=== PATIENT | female | born 1945 | race Caucasian/White ===

== ENCOUNTER 2019-09-06 12:11 | Inpatient (IN) | payer MEDICARE ==
[2019-09-06] MEDS ORDERED: Morphine 4 MG/ML VIAL ONE (12:55)
[2019-09-06] MEDS ORDERED: Magnesium 2 GM/50 ML BAG (IN WATER) ONE (12:55)
[2019-09-06] MEDS ORDERED: Ondansetron PF 4 MG/2 ML Vial ONE (12:55)
[2019-09-06] MEDS ORDERED: Potassium Chloride 40 MEQ in Sodium Chloride 0.9% 250 ML 250 ML IVPB SCH (13:15)
[2019-09-06] MEDS ORDERED: Acetaminophen 325 MG TAB PO PRN ×2 (14:19→16:53)
[2019-09-06] MEDS ORDERED: Ondansetron PF 4 MG/2 ML Vial IVP PRN (14:19)
[2019-09-06] MEDS ORDERED: Ondansetron ODT 4 MG TAB SL PRN (14:19)
[2019-09-06] MEDS ORDERED: Morphine 4 MG/ML VIAL SLOW IVP PRN (14:20)
[2019-09-06 14:30] VITALS: BMI 28.5
[2019-09-06] MEDS: Lactated Ringer's 1,000 ML IV SCH (14:52)
[2019-09-06] MEDS ORDERED: Acetaminophen 650 MG Suppository PR PRN (16:53)
[2019-09-06] MEDS ORDERED: Sodium Chloride 0.9% 1,000 ML IV SCH (17:00)
[2019-09-06 17:26] LABS: Hemoglobin 15.5 g/dL (12.0-16.0)
--- NOTE | 2019-09-06 17:32 | PDOC.HHP ---
Hospitalist HPI - History of Present Illness abdo pain and diarrhea History of Present Illness: Ms. Phillip states she developed diarrhea yesterday, had approximately 3-4 watery stools. She denies any nausea or vomiting. Has not had any fevers but reports having sweats and chills. States today she began to feel weak and then began noting bright red blood mixed with her stools and at times she has passed dark blood/clots. No further bloody stools since arriving to the floor. Denies any hematemesis. She states she feels generally better overall since she has been given fluids. No history of bowel disease. Denies being on any anticoagulation. No recent travels and no one has been ill at home. Denies being on any abx recently. ED Course: ED has given Morphine for pain and she was given IVF. Labs were done showing a WCC of 22 however lactic acid was normal. She had a critically low potassium of 2.8. Potassium replaced as well as magnesium. She had CT imaging done which was concerning for colitis. Antibiotics were given (Rocephin and Flagyl). Hospitalist ROS - Review of Systems Constitutional: reports: chills, sweats, malaise Eyes: denies: pain, vision change, conjunctivae inflammation, eyelid inflammation, redness, other ENT: denies: ear pain, ear discharge, nose pain, nose discharge, nose congestion , mouth pain, mouth swelling, throat pain, throat swelling, other Cardiovascular: denies: chest pain, palpitations, orthopnea, paroxysmal noc. dyspnea, edema, light headedness, other Gastrointestinal: reports: nausea, abdominal pain, diarrhea, hematochezia. denies: vomiting, constipation, melena, other Genitourinary: denies: dysuria, frequency, incontinence, hematuria, retention, other Musculoskeletal: denies: neck pain, shoulder pain, arm pain, back pain, hand pain, leg pain, foot pain, other Skin: denies: rash, lesions, ethan, bruising, other Neurological: denies: weakness, numbness, incoordination, change in speech, confusion, seizures, other - Medication Medications: Active Medications Generic Name Dose Route Start Last Admin Trade Name Freq PRN Reason Stop Dose Admin Lactated Ringer's 1,000 mls @ 100 mls/hr 09/06/19 14:30 09/06/19 14:52 Lactated Ringer's IV 09/07/19 01:00 1,000 mls .Q10H NIECY Administration Hospitalist History - Past Medical History Source: patient Cardiac: reports: HTN, Hyperlipidemia Psych: reports: Anxiety, Depression - Past Surgical History Past Surgical History: reports: Tonsillectomy - Social History Smoking Status: Smokes 0-10 cigs daily Alcohol: reports: None Drugs: reports: none Living Situation: Alone Activity level: independent ambulation - Exam General Appearance: NAD Eye: PERRL, anicteric sclera ENT: normocephalic atraumatic, no oropharyngeal lesions, moist mucosa Neck: supple, no lymphadenopathy Heart: RRR, no murmur, no gallops, no rubs Respiratory: CTAB, no wheezes, no rales, no ronchi, normal chest expansion, no tachypnea Gastrointestinal: soft, non-distended, normal bowel sounds, no guarding, no rigidity, tender to palpation (minimal diffuse "soreness" to palpation) Extremities: no cyanosis, no clubbing, no edema Skin: normal turgor, no lesions, no rashes Neurological: cranial nerve grossly intact Musculoskeletal: normal tone, normal strength Psychiatric: normal affect, normal behavior, A&O x 3 Hospitalist Results - Labs Result Diagrams: 09/06/19 17:20 Hospitalist H&P A/P - Problem (1) Colitis Code(s): K52.9 - NONINFECTIVE GASTROENTERITIS AND COLITIS, UNSPECIFIED Status : Acute (2) Abdominal pain Code(s): R10.9 - UNSPECIFIED ABDOMINAL PAIN Status: Acute (3) Hypokalemia Code(s): E87.6 - HYPOKALEMIA Status: Acute (4) Bloody stool Code(s): K92.1 - MELENA Status: Acute (5) Hypertension Code(s): I10 - ESSENTIAL (PRIMARY) HYPERTENSION Status: Chronic - Plan Plan: Continue IV Abx and IV fluids. Clear liquid diet. Stool cultures including C. Diff. Stat H/H to ensure no significant drop. Transfuse if needed. Currently no further GI bleeding since arrival. Monitor BP. EKG (baseline). Recheck electrolytes following potassium infusion. Replace further if needed. No chemical DVT prophylaxis. Mechanical SCDs. CODE STATUS: FULL Surrogate decision maker is her Alf Phillip. Discussed with Dr. Mckeon who agrees with plan as above.
[2019-09-06] MEDS: HYDROcodone/Acetaminophen 5/325 mg Tablet PO PRN (17:37)
[2019-09-06] MEDS ORDERED: Morphine 2 MG/ML SYRINGE SLOW IVP PRN (18:13)
--- NOTE | 2019-09-06 18:56 | HP ---
HISTORY OF PRESENT ILLNESS: The patient is from [place], goes to a physician in [place], Dr. Quach. She was referred to [facility] from [facility]. She presents with 24 hours of cramping abdominal pain, some nausea, diarrhea, and eventually bloody diarrhea. PAST MEDICAL HISTORY: Pertinent for hypertension, elevated cholesterol. MEDICATIONS: She has currently been on; 1. Zocor 20 mg a day. 2. Metoprolol 100 mg a day. 3. Fluoxetine 40 mg a day. 4. Gabapentin 100 mg three times a day. 5. Imdur 30 mg a day. 6. Aspirin 81 mg a day. ALLERGIES: TO LISINOPRIL. SOCIAL HISTORY: She smokes. REVIEW OF SYSTEMS: No chest pain, orthopnea, or paroxysmal nocturnal dyspnea. No cough, wheezing, or asthma. No hematuria, dysuria, or nocturia. No pain or swelling in her legs. PHYSICAL EXAMINATION: GENERAL: She is alert and oriented. VITAL SIGNS: Blood pressure 173/79, pulse 79, respirations 16, temperature 98.4. HEENT: Pupils are equal and round. Oral mucous membranes dry. CHEST: Clear to auscultation and percussion. HEART: Regular rate and rhythm. First and second heart sounds clear. ABDOMEN: Soft. Bowel sounds are normal. There is no hepatosplenomegaly. No mass. No rebound. EXTREMITIES: No cyanosis, clubbing, or edema. LABORATORY: Done at the outside facility reveals a white count of 22,000, hemoglobin 15.5, platelet count of 243,000. Potassium was 2.8, sodium 145, CO2 of 22, BUN and creatinine are normal. Liver function tests normal. Abdomen and pelvis, final report pending. ADMITTING DIAGNOSES: Abdominal pain, bloody diarrhea, leukocytosis, hypertension, dyslipidemia, hypokalemia. PLAN: 1. IV fluids. 2. IV antibiotics with Rocephin and Flagyl. 3. Resume home medicines. 4. Probable GI consult. I have discussed this case with EDWARD Gomez. Agree with her management. Job ID: [id number]
[2019-09-06] MEDS: Simvastatin 20 MG TAB PO SCH (19:50)
[2019-09-06] MEDS: Gabapentin 100 MG CAP PO SCH (19:50)
[2019-09-06] MEDS ORDERED: Ciprofloxacin 500 MG TAB PO SCH (20:00)
[2019-09-06 20:39] LABS: Anion Gap 15 mmol/L (10-20); Carbon Dioxide 16 mmol/L (23-31); Chloride 112 mmol/L (98-107); Potassium 4.1 mmol/L (3.5-5.1); Sodium 139 mmol/L (136-145)
[2019-09-06] MEDS ORDERED: metroNIDAZOLE 500 MG TAB PO SCH (21:00)
[2019-09-06] MEDS: metroNIDAZOLE 500 MG in Premix Bag 1 BAG IVPB SCH (22:24)
[2019-09-07] MEDS: metroNIDAZOLE 500 MG in Premix Bag 1 BAG IVPB SCH ×3 (04:42→21:42)
[2019-09-07] MEDS: HYDROcodone/Acetaminophen 5/325 mg Tablet PO PRN ×2 (04:42→18:52)
[2019-09-07] MEDS: Lactated Ringer's 1,000 ML IV SCH (04:43)
[2019-09-07 04:44] LABS: Band 5 % (5-11); Hemoglobin 14.4 g/dL (12.0-16.0); Lymphocytes 8 % (21-51); MDiff Complete? YES; Mean Corpuscular HGB CONC 33.1 g/dL (32.0-36.0); Mean Corpuscular Hemoglobin 29.2 pg (27.0-31.0); Mean Corpuscular Volume 88.3 fL (78.0-98.0); Mean Platelet Volume 9.3 fL (7.4-10.4); Monocytes 10 % (0-10); Neutrophil 77 % (42-75); Platelet Count 325 thou/uL (130-400); Platelet Morphology Comment Appears Adequate; RBC Distribution Width 15.2 % (11.5-14.5); Red Blood Cell (RBC) Count 4.92 mill/uL (4.20-5.40); White Blood Cell (WBC) Count 22.8 thou/uL (4.8-10.8)
[2019-09-07 04:54] LABS: Anion Gap 11 mmol/L (10-20); BUN (Urea Nitrogen) 12 mg/dL (9.8-20.1); Calc. Creatinine Clearance 77 mL/min (70-130); Calcium 8.5 mg/dL (7.8-10.44); Carbon Dioxide 23 mmol/L (23-31); Chloride 111 mmol/L (98-107); Estimated GFR-MDRD 76; Glucose 99 mg/dL (83-110); Potassium 3.6 mmol/L (3.5-5.1); Sodium 141 mmol/L (136-145)
--- NOTE | 2019-09-07 07:41 | PDOC.HOSPP ---
- Subjective Encounter Date: 09/07/19 Encounter Time: 07:40 Subjective: left sided abd pain persists, no further rectal bleeding - Objective Vital Signs & Weight: Vital Signs (12 hours) Temp Pulse Resp BP Pulse Ox 09/07/19 03:50 99.2 F 77 16 165/75 H 94 L 09/06/19 23:30 98.3 F 76 16 146/67 H 95 09/06/19 19:45 98.2 F 77 19 155/69 H 93 L Weight Weight 155 lb 13.869 oz I&O: 09/06/19 09/07/19 09/08/19 06:59 06:59 06:59 Intake Total 1645 Balance 1645 Result Diagrams: 09/07/19 03:58 09/07/19 03:58 Radiology Reviewed by me: Yes (CT abd- colitis in descendoing colon) Hospitalist ROS - Medication Medications: Active Medications Generic Name Dose Route Start Last Admin Trade Name Freq PRN Reason Stop Dose Admin Hydrocodone Bitart/Acetaminophen 1 tab 09/06/19 16:53 09/07/19 04:42 [place] 5/325 PO 1 tab Q4H PRN Administration Moderate Pain (4-6) Gabapentin 100 mg 09/06/19 21:00 09/06/19 19:50 Neurontin PO 100 mg TID NIECY Administration Metronidazole 500 mg/ Device 100 mls @ 100 mls/hr 09/06/19 22:00 09/07/19 04: 42 IVPB 100 mls Q8HR NIECY Administration Simvastatin 20 mg 09/06/19 21:00 09/06/19 19:50 Zocor PO 20 mg HS NIECY Administration - Exam General Appearance: awake alert Neck: no JVD Heart: RRR, no murmur Respiratory: CTAB Gastrointestinal: soft, normal bowel sounds, no palpable masses Gastrointestinal - other findings: mild left sided tenderness, no peritoneal findings Extremities: no edema Hosp A/P (1) Abdominal pain Code(s): R10.9 - UNSPECIFIED ABDOMINAL PAIN Status: Acute Qualifiers: Abdominal location: unspecified location Qualified Code(s): R10.9 - Unspecified abdominal pain (2) Colitis Code(s): K52.9 - NONINFECTIVE GASTROENTERITIS AND COLITIS, UNSPECIFIED Status : Acute (3) Hypokalemia Code(s): E87.6 - HYPOKALEMIA Status: Acute (4) Rectal bleeding Code(s): K62.5 - HEMORRHAGE OF ANUS AND RECTUM Status: Acute (5) Hypertension Code(s): I10 - ESSENTIAL (PRIMARY) HYPERTENSION Status: Chronic - Plan cont iv antibx cont analgesia GI consult
[2019-09-07] MEDS: Anagrelide HCl 0.5 MG CAP PO SCH (09:57)
[2019-09-07] MEDS: FLUoxetine HCl 20 MG CAP PO SCH (09:57)
[2019-09-07] MEDS: Calcium Carbonate + Vit D 1 TAB PO SCH (09:58)
[2019-09-07] MEDS: Metoprolol Tartrate 100 MG TAB PO SCH (09:58)
[2019-09-07] MEDS: Amlodipine 10 MG TAB PO SCH (09:58)
[2019-09-07] MEDS: Isosorbide Mononitrate (ER) 30 MG TAB PO SCH (09:58)
[2019-09-07] MEDS: Gabapentin 100 MG CAP PO SCH ×3 (09:58→20:10)
[2019-09-07] MEDS: cefTRIAXone\\ROCEPHIN 1 GM in Sodium Chloride 0.9% 100 ML IVPB SCH (12:41)
--- NOTE | 2019-09-07 17:10 | CON ---
DATE OF CONSULTATION: 09/07/2019 REASON FOR CONSULTATION: Abdominal pain and bloody diarrhea. HISTORY OF PRESENT ILLNESS: Mrs. Phillip is a 73-year-old female, who was transferred from [facility] overnight with the above complaint. Her symptoms started 2 days ago when she noted onset of mild crampy abdominal pain associated with some loose stool. Approximately 24 hours ago, the abdominal cramps became worse with subsequent development of hematochezia, characterized as bloody dark liquid stool, but without any clots. There was no bright red blood per rectum. She did have some mild nausea, but without any actual vomiting. She denies having had any fever. Her pain was severe, which prompted the ER evaluation with subsequent transfer to this facility. Outside CT demonstrated severe mural thickening involving the descending colon down to the sigmoid colon. So far today, her cramp has dramatically subsided. She has not had any further bloody output over the last 10 hours. The patient reportedly had a colonoscopy in [place] between 2 and 3 years ago for routine screening. She had polyps removed number without any other notable findings. She is a chronic smoker. She denies having had any antecedent gastrointestinal illness or issue. PAST MEDICAL HISTORY: 1. Hypertension. 2. Hyperlipidemia. 3. Chronic kidney disease. 4. Chronic tobacco user. ALLERGIES: LISINOPRIL. MEDICATIONS: At home includes, 1. Zocor. 2. Metoprolol. 3. Fluoxetine. 4. Gabapentin. 5. Imdur. 6. Aspirin. SOCIAL HISTORY: The patient is . She smokes a pack a day since the age of 20. She denies and any alcohol consumption. FAMILY HISTORY: Negative for any known GI problem, liver disease, or GI malignancy. REVIEW OF SYSTEMS: Ten-point review of systems did not show any other pertinent positives or negatives, except for above stated in the HPI. PHYSICAL EXAMINATION: VITAL SIGNS: Temperature is 99.0, blood pressure is 120/58, pulse of 67. GENERAL: She is alert and conversant, in no distress. HEENT: Shows anicteric sclerae. Oropharynx is clear and moist. NECK: Supple. CV: Shows normal S1 and S2. Regular rate and rhythm. CHEST: Shows breath sounds. ABDOMEN: Soft and mildly tender in the infraumbilical area. No guarding or rebound. There is no distention or tympany. She has active bowel sounds. EXTREMITIES: Show no edema. LABORATORY DATA: WBCs 22.8, hemoglobin 14.4, platelet count 325. INR 1.2, PTT 28.4. Electrolytes within normal range. Creatinine is 0.75, BUN of 12. IMAGING STUDIES: CT of the abdomen performed yesterday with IV contrast, demonstrated mural thickening of the descending colon and sigmoid colon with no other notable findings. ASSESSMENT: 1. Clinical presentation, symptoms, and radiographic findings are consistent with ischemic colitis. Her symptoms are resolving at this point with resolution of bloody stool and lessening of her abdominal cramps. Physical exam shows a benign abdomen at the present time. 2. History of colon polyps, last colonoscopy between 2 and 3 years ago in [place]. RECOMMENDATION: 1. No GI intervention is needed at the present time. 2. We will advance her diet. 3. Continue observation. I anticipate the patient can be discharged home in 1 to 2 days, if she can tolerate diet and her symptoms continue to improve. 4. Elective outpatient colonoscopy by Dr. Mcginnis, her angle shear operator in [place], within the next 2 to 3 months. 5. The patient is advised to discontinue tobacco. 6. We will follow. Job ID: [id number]
[2019-09-07] MEDS: Simvastatin 20 MG TAB PO SCH (20:10)
[2019-09-08] MEDS: metroNIDAZOLE 500 MG in Premix Bag 1 BAG IVPB SCH ×3 (05:54→20:43)
[2019-09-08] MEDS: HYDROcodone/Acetaminophen 5/325 mg Tablet PO PRN (07:12)
[2019-09-08] MEDS: Gabapentin 100 MG CAP PO SCH ×3 (08:47→20:39)
[2019-09-08] MEDS: Amlodipine 10 MG TAB PO SCH (08:47)
[2019-09-08] MEDS: Calcium Carbonate + Vit D 1 TAB PO SCH (08:47)
[2019-09-08] MEDS: Isosorbide Mononitrate (ER) 30 MG TAB PO SCH (08:47)
[2019-09-08] MEDS: FLUoxetine HCl 20 MG CAP PO SCH (08:47)
--- NOTE | 2019-09-08 08:48 | PDOC.HOSPP ---
- Subjective Encounter Date: 09/08/19 Encounter Time: 08:47 Subjective: left sided abd pain improving, no more rectal bleeding - Objective Vital Signs & Weight: Vital Signs (12 hours) Temp Pulse Resp BP BP Pulse Ox 09/08/19 07:56 98.7 F 63 20 152/76 H 95 09/08/19 04:00 98.4 F 63 18 141/65 H 94 L 09/08/19 00:00 98.4 F 62 15 134/75 95 Weight Weight 155 lb 13.869 oz I&O: 09/07/19 09/08/19 09/09/19 06:59 06:59 06:59 Intake Total 1645 500 Balance 1645 500 Result Diagrams: 09/07/19 03:58 09/07/19 03:58 Hospitalist ROS - Medication Medications: Active Medications Generic Name Dose Route Start Last Admin Trade Name Freq PRN Reason Stop Dose Admin Hydrocodone Bitart/Acetaminophen 1 tab 09/06/19 16:53 09/08/19 07:12 [place] 5/325 PO 1 tab Q4H PRN Administration Moderate Pain (4-6) Amlodipine Besylate 10 mg 09/07/19 09:00 09/07/19 09:58 Norvasc PO 10 mg DAILY NIECY Administration Anagrelide HCl 1 mg 09/07/19 09:00 09/07/19 09:57 Agrylin PO 1 mg DAILY NIECY Administration Calcium/Vitamin D 1 tab 09/07/19 09:00 09/07/19 09:58 Caltrate 600 + Vit D PO 1 tab DAILY NIECY Administration Fluoxetine HCl 40 mg 09/07/19 09:00 09/07/19 09:57 Prozac PO 40 mg DAILY NIECY Administration Gabapentin 100 mg 09/06/19 21:00 09/07/19 20:10 Neurontin PO 100 mg TID NIECY Administration Ceftriaxone Sodium 1 gm/ 100 mls @ 200 mls/hr 09/07/19 11:00 09/07/19 12:41 Sodium Chloride IVPB 100 mls Q24HR NIECY Administration Metronidazole 500 mg/ Device 100 mls @ 100 mls/hr 09/06/19 22:00 09/08/19 05: 54 IVPB 100 mls Q8HR NIECY Administration Isosorbide Mononitrate 30 mg 09/07/19 09:00 09/07/19 09:58 Imdur Er PO 30 mg DAILY NIECY Administration Metoprolol Tartrate 100 mg 09/07/19 09:00 09/07/19 09:58 Lopressor PO 100 mg DAILY NIECY Administration Simvastatin 20 mg 09/06/19 21:00 09/07/19 20:10 Zocor PO 20 mg HS NIECY Administration - Exam Eye: anicteric sclera Neck: no JVD Heart: RRR, no murmur Respiratory: CTAB Gastrointestinal: soft, non-distended, normal bowel sounds Gastrointestinal - other findings: minimal LLQ tenderness Hosp A/P (1) Abdominal pain Code(s): R10.9 - UNSPECIFIED ABDOMINAL PAIN Status: Acute Qualifiers: Abdominal location: unspecified location Qualified Code(s): R10.9 - Unspecified abdominal pain (2) Colitis Code(s): K52.9 - NONINFECTIVE GASTROENTERITIS AND COLITIS, UNSPECIFIED Status : Acute (3) Hypokalemia Code(s): E87.6 - HYPOKALEMIA Status: Acute (4) Rectal bleeding Code(s): K62.5 - HEMORRHAGE OF ANUS AND RECTUM Status: Acute (5) Hypertension Code(s): I10 - ESSENTIAL (PRIMARY) HYPERTENSION Status: Chronic - Plan cont iv antibx lolis 24 hrs, then transition to po advance diet GI consult appreciated
[2019-09-08 09:40] LABS: Anion Gap 10 mmol/L (10-20); BUN (Urea Nitrogen) 10 mg/dL (9.8-20.1); Calc. Creatinine Clearance 81 mL/min (70-130); Calcium 8.2 mg/dL (7.8-10.44); Carbon Dioxide 25 mmol/L (23-31); Chloride 111 mmol/L (98-107); Estimated GFR-MDRD 81; Glucose 85 mg/dL (83-110); Potassium 3.7 mmol/L (3.5-5.1); Sodium 142 mmol/L (136-145)
[2019-09-08 09:58] LABS: #Basophils 0.1 thou/uL (0.0-0.2); #Eosinphils 0.2 thou/uL (0.0-0.7); #Lymphocytes 2.1 thou/uL (1.20-3.40); #Monocytes 1.4 thou/uL (0.11-0.59); #Neutrophils 11.6 thou/uL (1.40-6.50); %Basophils 0.6 % (0.0-1.0); %Eosinophils 1.2 % (0.0-10.0); %Lymphocytes 13.4 % (21.0-51.0); %Monocytes 9.4 % (0.0-10.0); %Neutrophils 75.5 % (42.0-75.0); Band 12 % (5-11); Eosinophils 1 % (0-10); Hemoglobin 13.9 g/dL (12.0-16.0); Large Platelets SLIGHT; Lymphocytes 3 % (21-51); MDiff Complete? YES; Mean Corpuscular HGB CONC 32.8 g/dL (32.0-36.0); Mean Corpuscular Hemoglobin 28.9 pg (27.0-31.0); Mean Platelet Volume 9.4 fL (7.4-10.4); Monocytes 6 % (0-10); Neutrophil 69 % (42-75); Platelet Count 323 thou/uL (130-400); Platelet Morphology Comment Appears Adequate; Polychromasia SLIGHT = 2-3 cells (100X) (0-2/hpf); Reactive Lymphocytes 9 % (0-10); Red Blood Cell (RBC) Count 4.82 mill/uL (4.20-5.40); White Blood Cell (WBC) Count 15.4 thou/uL (4.8-10.8)
[2019-09-08] MEDS: Aspirin 81 mg Enteric Coated Tablet PO SCH (10:03)
[2019-09-08] MEDS: Metoprolol Tartrate 100 MG TAB PO SCH (10:03)
[2019-09-08] MEDS: Anagrelide HCl 0.5 MG CAP PO SCH (10:04)
[2019-09-08] MEDS: cefTRIAXone\\ROCEPHIN 1 GM in Sodium Chloride 0.9% 100 ML IVPB SCH (11:04)
--- NOTE | 2019-09-08 16:10 | PDOC.EVN ---
Event Note - Event Note Event Note: leukocytosis improving, cont current antibx
--- NOTE | 2019-09-08 16:26 | PRG ---
DATE OF SERVICE: 09/08/2019 SUBJECTIVE: The patient continues to feel better. Abdominal cramps and pain are less. There is no nausea or vomiting. No further bloody bowel movements. PHYSICAL EXAMINATION: VITAL SIGNS: Temperature is 98.4, blood pressure 134/66, and pulse of 68. GENERAL: She is alert, no distress. HEENT: Shows anicteric sclerae. Oropharynx is clear and moist. CV: Shows normal S1 and S2. Regular rate and rhythm. CHEST: Shows breath sounds. ABDOMEN: Showed mild tenderness in the lower part below the umbilicus, otherwise soft with good bowel sounds. No tympany or distention. EXTREMITIES: Shows no edema. LABORATORY DATA: WBC is 15.4, hemoglobin 13.9, and platelet count of 323. Electrolytes within normal range. Creatinine is 0.71. ASSESSMENT: Ischemic colitis, resolving. Tolerating regular diet. RECOMMENDATION: 1. The patient can be discharged home tomorrow if she continues to improve. There is no need for any antibiotics. 2. She can either followup with me or with Dr. Mcginnis, who comes to [place] in 4 to 5 weeks. 3. Re-emphasis on smoking cessation. Job ID: [id number]
[2019-09-08] MEDS: Simvastatin 20 MG TAB PO SCH (20:39)
[2019-09-09] MEDS: metroNIDAZOLE 500 MG in Premix Bag 1 BAG IVPB SCH (05:00)
[2019-09-09] MEDS: Isosorbide Mononitrate (ER) 30 MG TAB PO SCH (08:34)
[2019-09-09] MEDS: Metoprolol Tartrate 100 MG TAB PO SCH (08:34)
[2019-09-09] MEDS: FLUoxetine HCl 20 MG CAP PO SCH (08:34)
[2019-09-09] MEDS: Gabapentin 100 MG CAP PO SCH (08:34)
[2019-09-09] MEDS: Anagrelide HCl 0.5 MG CAP PO SCH (08:35)
[2019-09-09] MEDS: Calcium Carbonate + Vit D 1 TAB PO SCH (08:35)
[2019-09-09] MEDS: Amlodipine 10 MG TAB PO SCH (08:35)
[2019-09-09] MEDS: Aspirin 81 mg Enteric Coated Tablet PO SCH (08:35)
[2019-09-09 09:27] LABS: #Basophils 0.1 thou/uL (0.0-0.2); #Eosinphils 0.2 thou/uL (0.0-0.7); #Lymphocytes 1.8 thou/uL (1.20-3.40); #Monocytes 1.3 thou/uL (0.11-0.59); #Neutrophils 10.4 thou/uL (1.40-6.50); %Basophils 0.7 % (0.0-1.0); %Eosinophils 1.7 % (0.0-10.0); %Lymphocytes 13.2 % (21.0-51.0); %Monocytes 9.1 % (0.0-10.0); %Neutrophils 75.2 % (42.0-75.0); Hemoglobin 13.5 g/dL (12.0-16.0); Mean Corpuscular HGB CONC 33.4 g/dL (32.0-36.0); Mean Corpuscular Hemoglobin 28.9 pg (27.0-31.0); Mean Corpuscular Volume 86.7 fL (78.0-98.0); Mean Platelet Volume 9.7 fL (7.4-10.4); Platelet Count 355 thou/uL (130-400); Red Blood Cell (RBC) Count 4.66 mill/uL (4.20-5.40); White Blood Cell (WBC) Count 13.9 thou/uL (4.8-10.8)
[2019-09-09] MEDS: cefTRIAXone\\ROCEPHIN 1 GM in Sodium Chloride 0.9% 100 ML IVPB SCH (10:41)
--- NOTE | 2019-09-09 12:41 | PDOC.EVN ---
Event Note - Event Note Event Note: Discharged home. #[id number]
[2019-09-09 13:28] VITALS: BP 157/75; TEMP 98.2
--- NOTE | 2019-09-09 14:24 | DIS ---
DATE OF ADMISSION: 09/07/2019 DATE OF DISCHARGE: 09/09/2019 PRIMARY CARE PHYSICIAN: Dr. Denise Quach. DISCHARGE DIAGNOSES: 1. Acute ischemic colitis. 2. Acute abdominal pain. 3. Hematochezia. 4. Leukocytosis. 5. Hypokalemia. 6. Hypertension. CONSULT: GI. HOSPITAL COURSE: A 73-year-old female with past medical history significant for hypertension, hyperlipidemia, admitted due to acute onset of crampy abdominal pain associated with nausea, diarrhea, and bloody stool. The patient also was found to have leukocytosis and was started on broad-spectrum antibiotic therapy. Further evaluation with CT scan showed mural thickening of the colon. GI consult was obtained and he was of the view that the patient has ischemic colitis and supportive care was instituted. Abdominal pain and hematochezia improved and patient was tolerating oral intake. Hemoglobin dropped from 15 to 13, but remained stable. Hypokalemia was treated appropriately. She improved and was subsequently discharged home. GI recommended interval colonoscopy in 4 weeks. PHYSICAL EXAMINATION: VITAL SIGNS: Temperature 99, pulse 64, respiratory rate 16, SpO2 of 96% on room air, blood pressure is 148/72. GENERAL: Elderly female, in no distress. Afebrile. Anicteric. Acyanotic. HEENT: Normocephalic, atraumatic. Oral mucosa is moist. CARDIOVASCULAR: Regular rhythm and rate with normal. heart sounds 1 and 2. RESPIRATORY: Good air entry bilaterally with no obvious crackle or rhonchi or use of accessory muscles. GI: Full, soft with mild left lower quadrant tenderness. Bowel sound is normoactive. EXTREMITIES: Grossly normal looking atraumatic with no edema or erythema. BLACK JACK DEALER: Conscious, alert, oriented x3 with appropriate mental status. DISPOSITION: Home. CONDITION: Improved. DISCHARGE MEDICATIONS: 1. Metronidazole 500 mg t.i.d. for 7 days. 2. Amoxicillin 500 mg p.o. t.i.d. for 7 days. 3. Amlodipine 10 mg p.o. daily. 4. Anagrelide 1 mg p.o. daily. 5. Aspirin 81 mg p.o. daily. 6. Calcium carbonate with vitamin D 1 tablet p.o. daily. 7. Fluoxetine 40 mg p.o. daily. 8. Gabapentin 100 mg p.o. t.i.d. 9. Isosorbide mononitrate 30 mg p.o. daily. 10. Metoprolol 100 mg p.o. daily. 11. Simvastatin 20 mg p.o. daily at bedtime. 12. Florastor 250 mg p.o. daily. 13. Acetaminophen 650 mg q.4 p.r.n. for pain. FOLLOWUP: 1. With PCP in 7 days. 2. With GI in 4 weeks. This discharge took more than 36 minutes. Job ID: [id number]
--- NOTE | 2019-09-12 06:04 | PQF ---
ABHILASH REDDY OBI, CHIZOBA C [id number] CLINICAL DOCUMENTATION CLARIFICATION FORM: POST DISCHARGE Addendum to original discharge summary date: ____ Late entry note date: __ DATE: 09-12-2019 ATTN: Carlie Posadas Obi Please exercise your independent, professional judgment in responding to the clarification form. Clinical indicators are provided on the bottom of this form for your review Can you please clarify the relationship of acute ischemic colitis and melena. Please check appropriate box(s): [ ] melena due to acute ischemic colitis [ ] melena not related to acute ischemic colitis [ ] melena unspecified [ ] Other diagnosis please specify: [ ] Unable to determine In addition, please specify: Present on Admission (POA): [ ] Yes [ ] No [ ] Unable to determine For continuity of documentation, please document condition throughout progress notes and discharge summary. Thank You. CLINICAL INDICATORS: HP 10/[address] Mckeon admitting diagnosis: abdominal pain, bloody diarrhea, leukocytosis Consult 09/[address] Bhagat abdominal cramps became worse with subsequent development of hematochezia DS 09/[address] Giang Acute ischemic colitis DS 09/[address] Giang abdominal pain and hematochezia improved and patient tolerating oral intake RISK FACTORS: HP 10/[address] Mckeon-HTN HP 10/[address] Mckeon- Elevated cholestreol HP 10/[address] Mckeon- Colitis TREATMENT: HP 10/[address] Mckeon- IV Fluids HP 10/[address] Mckeon- IV antibiotics with Rocephin and Flagyl HP 10/[address] Mckeon-GI Consult (This form is maintained as a part of the permanent medical record) 2014 [employer]. All Rights Reserved [email or web address] [[email or web address]] [email or web address]
== END 2019-09-09 14:17 | disposition home or self-care (01) | DRG 395 ==
LOC: ERS 12:11 → 2SW 14:12 → OBSVTOIN 09-07 07:46 → T4-A 09-07 17:20
PROVIDERS: ADMIT Internal Medicine; ATTEND Internal Medicine
DX: K55.039 Acute (reversible) ischemia of large intestine, extent unspecified (principal); E78.5 Hyperlipidemia, unspecified; E78.00 Pure hypercholesterolemia, unspecified; F41.9 Anxiety disorder, unspecified; F32.9 Major depressive disorder, single episode, unspecified; E87.6 Hypokalemia; D72.829 Elevated white blood cell count, unspecified; F17.210 Nicotine dependence, cigarettes, uncomplicated; I12.9 Hypertensive chronic kidney disease with stage 1 through stage 4 chronic kidney disease, or unspecified chronic kidney disease; N18.9 Chronic kidney disease, unspecified; Z79.82 Long term (current) use of aspirin; Z88.8 Allergy status to other drugs, medicaments and biological substances; Z79.899 Other long term (current) drug therapy
CPT/HCPCS: 36415; 80048; 83630; 83735; 85025; 87045; 87046; 87324; 87328; 87329; 87427; 87449; 96365; 96375; J0696; J2270; J2405; J3475; J3480; J3490; J7050

== ENCOUNTER 2024-05-08 13:44 | Inpatient (IN) | payer OTHER ==
[2024-05-08] MEDS ORDERED: Atropine Sulfate 1 mg/1 ml Vial IVP PRN (15:25)
[2024-05-08 15:33] LABS: Magnesium 2.2 mg/dL (1.6-2.6)
[2024-05-08] MEDS ORDERED: Acetaminophen 325 MG TAB PO PRN (15:38)
[2024-05-08] MEDS ORDERED: Senokot S 8.6-50 MG TAB PO PRN (15:38)
[2024-05-08] MEDS ORDERED: Calcium Carbonate 500 MG ChewTAB PO PRN (15:38)
[2024-05-08 15:39] LABS: Troponin I 0.025 ng/mL (< 0.028)
[2024-05-08 16:25] VITALS: BMI 28.8
[2024-05-08] MEDS ORDERED: Nitroglycerin 0.4 MG TAB (25 Tab Bottle) SL PRN (17:33)
[2024-05-08] MEDS: Heparin 5,000 UNITS/ML VIAL SC SCH (21:13)
[2024-05-08] MEDS: Famotidine 20 MG TAB PO SCH (21:13)
[2024-05-09 05:28] LABS: #Basophils Less than 0.03 10x3/uL (0.0-0.2); #Eosinphils Less than 0.03 10x3/uL (0.0-0.7); %Basophils 0.1 % (0.0-1.0); %Eosinophils 0.3 % (0.0-10.0); %Lymphocytes 40.9 % (21.0-51.0); %Monocytes 9.1 % (0.0-10.0); %Neutrophils 48.4 % (42.0-75.0); Hematocrit 31.4 % (36.0-47.0); Hemoglobin 10.7 g/dL (12.0-16.0); Mean Corpuscular HGB CONC 34.1 g/dL (32.0-36.0); Mean Corpuscular Hemoglobin 40.4 pg (27.0-31.0); Mean Corpuscular Volume 118.5 fL (78.0-98.0); Mean Platelet Volume 10.4 fL (7.4-10.4); Platelet Count 324 10x3/uL (130-400); RBC Distribution Width 13.1 % (11.5-14.5); Red Blood Cell (RBC) Count 2.65 mill/uL (4.20-5.40)
[2024-05-09 05:36] LABS: Troponin I 0.019 ng/mL (< 0.028)
[2024-05-09 05:38] LABS: Anion Gap 15 mmol/L (10-20); BUN (Urea Nitrogen) 22 mg/dL (9.8-20.1); Calc. Creatinine Clearance 59 mL/min (70-130); Calcium 9.3 mg/dL (7.8-10.44); Carbon Dioxide 21 mmol/L (23-31); Chloride 109 mmol/L (98-107); Estimated GFR 61; Glucose 89 mg/dL (83-110); Potassium 3.6 mmol/L (3.5-5.1); Sodium 141 mmol/L (136-145)
[2024-05-09] MEDS: Aspirin Chewable 81 MG TAB PO SCH (08:55)
[2024-05-09] MEDS ORDERED: traMADol HCl 50 MG TAB PO PRN (15:45)
[2024-05-09] MEDS: Atorvastatin Calcium 10 MG TAB PO SCH (20:36)
[2024-05-10 04:19] LABS: Hematocrit 33.2 % (36.0-47.0); Hemoglobin 11.3 g/dL (12.0-16.0); Mean Corpuscular Hemoglobin 40.2 pg (27.0-31.0); Mean Corpuscular Volume 118.1 fL (78.0-98.0); Mean Platelet Volume 9.7 fL (7.4-10.4); Platelet Count 282 10x3/uL (130-400); RBC Distribution Width 12.8 % (11.5-14.5); Red Blood Cell (RBC) Count 2.81 mill/uL (4.20-5.40)
[2024-05-10 04:37] LABS: Anion Gap 13 mmol/L (10-20); BUN (Urea Nitrogen) 17 mg/dL (9.8-20.1); Calc. Creatinine Clearance 67 mL/min (70-130); Calcium 9.3 mg/dL (7.8-10.44); Carbon Dioxide 21 mmol/L (23-31); Chloride 107 mmol/L (98-107); Estimated GFR 72; Glucose 93 mg/dL (83-110); Potassium 3.5 mmol/L (3.5-5.1); Sodium 137 mmol/L (136-145)
[2024-05-10] MEDS: FLUoxetine HCl 20 MG CAP PO SCH (08:30)
[2024-05-10] MEDS: Isosorbide Mononitrate 30 MG ER.TAB PO SCH (08:30)
[2024-05-10] MEDS: Hydroxyurea 500 MG CAP PO SCH (08:35)
[2024-05-10] MEDS: Amlodipine 10 MG TAB PO SCH (10:09)
[2024-05-10 10:12] VITALS: BP 127/62
[2024-05-10 12:06] VITALS: TEMP 98.1
[2024-05-14] MEDS ORDERED: Hydroxyurea 500 MG CAP PO SCH ×2 (09:00)
== END 2024-05-10 15:22 | disposition home or self-care (01) | DRG 310 ==
LOC: ERS 13:44 → IMCU/EMU 14:55
PROVIDERS: ADMIT Internal Medicine; ATTEND Internal Medicine
DX: R00.1 Bradycardia, unspecified (principal); I10 Essential (primary) hypertension; E78.5 Hyperlipidemia, unspecified; F17.210 Nicotine dependence, cigarettes, uncomplicated; F41.9 Anxiety disorder, unspecified; R19.7 Diarrhea, unspecified; Z88.8 Allergy status to other drugs, medicaments and biological substances; Z79.82 Long term (current) use of aspirin; Z79.899 Other long term (current) drug therapy; Z90.89 Acquired absence of other organs
CPT/HCPCS: 36415; 80048; 83735; 84443; 84484; 85025; 85027; 93005; 93306; J1644